=== PATIENT | male | born 1975 | race Caucasian/White ===

== ENCOUNTER 2021-10-16 19:29 | Day surgery (SDC) | payer OTHER, SELFPAY ==
[2021-10-16] VITALS (13 sets, daily range): BP systolic 108–130; BP diastolic 70–93; PULSE 61–84; RESP 12–20; TEMP 36.2–37; O2SAT 95–100; BMI 24.3
--- NOTE | 2021-10-16 20:04 | CT_ITS ---
Final Report Patient: ANGUS ANGEL Facility:?[facility], [place] Patient ID:?[id number] Site Patient ID:?[id number]. Site :?[id number] Study:?CT Abdomen/Pelvis W/ISOVUE 370 98CC-10/16/2021 8:32:05 PM Ordering Physician:Bettye Mathis Final Report: INDICATION: Right lower quadrant pain. TECHNIQUE: Volumetric helical scanning of the abdomen and pelvis was performed with 98 cc of Isovue 370 contrast material IV. Coronal and sagittal reconstructions were obtained. COMPARISON: None. FINDINGS: Inflamed appendix demonstrated in the right lower quadrant on images 112-130 of series 2. The appendix contains fluid, air and an appendicolith and measures up to 12 mm in diameter. No periappendiceal abscess, free fluid or free air is demonstrated. The bowel is otherwise unremarkable. Extent The liver may be fatty. A small cyst in the superior right lobe, segment 7, is noted. The bile ducts are within normal limits. The spleen, adrenal glands and pancreas are negative. The kidneys are unremarkable. No lymphadenopathy is evident. No free fluid is demonstrated. The prostate is within normal limits. Postop changes of left inguinal hernia repair are noted. The lung bases are essentially clear, and heart size is normal. IMPRESSION: 1. Acute appendicitis without evidence of perforation. 2. Possible fatty change of the liver. Small liver segment 7 cyst. 3. Post left inguinal hernia repair. Please note that all CT scans at this facility use dose modulation, iterative reconstruction, and/or weight-based dosing when appropriate to reduce radiation dose to as low as reasonably achievable. Dictated by Dav Man MD @ 10/16/2021 9:06:55 PM (Electronic Signature)
[2021-10-16 20:26] LABS: Basophils Percent Auto 0.2 % (0.0-3.0); Eosinophils Percent Auto 1.4 % (0.0-7.0); Hematocrit 42.7 % (37.0-53.0); Hemoglobin* 14.5 gm/dL (13.5-17.5); Immature Granulocytes Abs Auto 0.02 K/uL (0.00-0.30); Lymphocytes Percent Auto 17.2 % (20-44); Mean Corpuscular HGB Conc 34 gm/dL (32-36); Mean Corpuscular Hemoglobin 32 pg (26-34); Mean Corpuscular Volume 95 fL (80-100); Monocytes Percent Auto 6.3 % (0.0-11.0); Neutrophils Percent Auto 74.7 % (42.0-72.0); Platelet Count* 258 K/uL (140-440); RDW Coefficient of Variation % 13.1 % (11.5-15.5); Red Blood Count 4.48 m/uL (4.30-5.90); White Blood Count* 13.24 K/uL (4.50-11.00)
[2021-10-16] MEDS: 0.9 % SODIUM CHLORIDE 1000 ml 1,000 ML IV (20:30)
[2021-10-16 20:32] LABS: Chloride* 104 mmol/L (96-114); Slide Review Reflex No
[2021-10-16 20:33] LABS: Potassium* 4.1 mmol/L (3.6-5.1); Sodium* 134 mmol/L (135-149)
[2021-10-16 20:35] LABS: Est. Creatinine Clearance* 115.73; Estimated Glomerular Filt Rate 95 ml/min
[2021-10-16 20:36] LABS: Blood Urea Nitrogen* 20 mg/dL (5-24); Calcium* 9.4 mg/dL (8.4-10.6); Carbon Dioxide* 29 mmol/L (20-32); Glucose* 96 mg/dL (60-115)
[2021-10-16 20:39] LABS: C Reactive Protein* 1.8 mg/dL (0.5-1.0)
[2021-10-16 20:46] LABS: Appearance Urine Clear (Clear); Bilirubin Urine Negative (Negative); Blood Urine Negative (Negative); Color Urine Yellow (Yellow); Glucose Urine Negative (Negative); Ketones Urine Negative (Negative); Leukocyte Esterase Urine Negative (Negative); Nitrite Urine Negative (Negative); Protein Urine Negative (Negative); Specific Gravity Urine 1.015 (1.000-1.030); Urobilinogen Urine 0.2 (0.2-1.0); pH Urine 6.5 (5.0-8.5)
--- NOTE | 2021-10-16 21:22 | ED_ITS ---
HPI - Abdominal Pain General Date Seen: 10/16/21 Chief Complaint: Abdominal Pain Stated Complaint: RLQ Abdominal Pain Time Seen by Provider: 10/16/21 19:40 Source: patient and family Mode of arrival: ambulatory Limitations: no limitations History of Present Illness HPI narrative: Patient is delightful 46-year-old gentleman who presents here with his partner, for evaluation of right lower quadrant pain he was seen initially in Urgent Care and sent over here. Pain started yesterday afternoon periumbilical, now has migrated to the right lower quadrant since this morning. Eat some food earlier in the day but has not really eaten anything at all his he has not felt hungry. He did notice on the way over the bump seem to trigger more discomfort. But he is not walking bent over, he denies any fevers chills or sweats, there has been no nausea vomiting, or any change in his bowel habits he denies any dysuria frequency. They are worried about appendicitis. No family history of diver ticulitis or other issues. He did not take any Tylenol or ibuprofen, is not chronically on any medications. And has no known allergies. Has seen surgery before foreign inguinal hernia repair. MD elicited complaint: abdominal pain Pertinent past history: none Onset (ago): day(s) Pain Consistency: constant Location: RLQ Severity: moderate Quality: aching Radiation: RLQ Migration to: periumbilical and RLQ Exacerbating factors: movement Relieving factors: nothing Associated symptoms: denies other symptoms Related Data Home Medications Medication Instructions Recorded Confirmed No Known Home Medications 10/16/21 10/16/21 Allergies Allergy/AdvReac Type Severity Reaction Status Date / Time No Known Drug Allergies Allergy Verified 10/16/21 19:37 Review of Systems Status of ROS Reports: 10 or more systems reviewed and unremarkable except as noted in History and below Narrative No other complaints on review of systems is COVID vaccinated x2 with no boosters has never before had COVID. PFSH PFSH Social History Smoking Status: Current every day smoker What tobacco products do you use: cigarettes Do you use any of these nicotine containing products: None Second hand tobacco smoke exposure: No How often do you have a drink containing alcohol: 2-3 times a week How many standard drinks containing alcohol do you have on a typical day: 5 or 6 How often do you have six or more drinks on one occasion: Weekly AUDIT-C Alcohol total score: 8 Non-prescribed substance use: denies use Exam Const: Vital Signs, click to edit/add: Vital Signs - 24 hr 10/16/21 19:34 Temperature 98.6 F Pulse Rate [Left P ulse Oximeter] 84 Blood Pressure [Ri ght Upper Arm] 123/82 Pulse Oximetry 100 Documenting provider has reviewed patient's vital signs: yes Common normals: no apparent distress and oriented x3 General appearance: cooperative, comfortable and well kempt Nutritional appearance: thin Orientation/consciousness: Yes awake, Yes oriented to person and Yes oriented to place HENMT: Common normals: normocephalic, head/scalp atraumatic, hearing grossly normal bilaterally, external ears normal, EAC's normal, TM's normal bilaterally, external nose normal, nasal mucous membranes and turbinates normal, moist oral mucous membranes, oropharynx normal, dentition normal and gingiva normal Head and scalp: normal to inspection, normocephalic and atraumatic Face and sinus: normal facial exam, sinuses nontender and face symmetric Nose: external nose normal, nares normal and nasal mucous membranes and turbinates normal External ear: external ears normal External auditory canal: EAC's normal Tympanic membrane: TM's normal bilaterally Mouth: oral and palatal mucosa normal, lip normal and tongue normal Throat: posterior oropharynx normal, tonsils normal and uvula midline Eye: Common normals: EOMs intact bilaterally, conjunctivae normal, no scleral icterus and fundi normal bilaterally Conjunctiva: conjunctiva(e) normal Direct Ophthalmoscopy: fundi normal bilaterally Neck & C-Spine: Common normals: full ROM, no lymphadenopathy, supple, no meningeal signs, no JVD and no carotid bruits General: normal visual inspection Lymph: Lymphatic: no lymphadenopathy noted and no lymphedema noted Chest: Common normals: inspection of chest normal and palpation of chest normal Resp: Common normals: normal respiratory effort, no retractions, no use of accessory muscles, clear to auscultation bilaterally and percussion normal Effort & inspection: able to speak in complete sentences and symmetric chest movement Auscultation: clear to auscultation bilaterally Percussion: percussion normal Cardio: Common normals: no JVD, regular rate, regular rhythm, S1 normal heart sound, S2 normal heart sound, no gallops, no clicks, no murmurs, no rub and peripheral pulses 2+ throughout Rate: regular rate Rhythm: regular rhythm Heart sounds: S1 normal and S2 normal Peripheral pulses: pulses 2+ throughout GI: Common normals: Normal to inspection, nondistended, normoactive bowel sounds present, soft to palpation and no hepatosplenomegaly Auscultation: normoactive bowel sounds Palpation: soft, tender Details: RLQ, guarding and no hepatosplenomegaly Percussion: normal to percussion Rectal Exam - Male: deferred : Common normals: no CVA tenderness, external exam normal, testes normal, scrotum normal, no scrotal swelling and no hernias present Bladder/kidney exam: no CVA tenderness Back & Pelvis: Common normals: no CVA tenderness Extremity: Common normals: normal to inspection, full ROM, normal capillary refill, no joint enlargement, no clubbing, cyanosis or edema, no calf tenderness and no pedal edema Neuro: Common normals: oriented x3, CN's II-XII intact bilaterally, moves all extremities, no focal motor deficits, no sensory deficits noted, deep tendon reflexes 2+ bilaterally and gait normal Sensorium/orientation: awake, oriented to person and oriented to place Meningeal signs: no meningeal signs Motor exam: strength 5/5 throughout Psych: Appearance: well kempt Skin: Common normals: no rashes or lesions noted, no wounds, skin turgor normal, no jaundice, no petechiae and no mottling General skin exam: no rashes or lesions noted and turgor normal Course Consultations Consultation #1: Dr. Armstrong from General surgery Vital Signs Vital signs: Initial Vital Signs Temperature 98.6 F 10/16/21 19:34 Temperature Source Temporal Artery Scan 10/16/21 19:34 Pulse Rate 84 10/16/21 19:34 Blood Pressure 123/82 10/16/21 19:34 Blood Pressure Mean 95 10/16/21 19:34 Blood Pressure Position Supine 10/16/21 19:34 Pulse Oximetry 100 10/16/21 19:34 Oxygen Delivery Method 10/16/21 19:34 Vital Signs Temperature 98.6 F 10/16/21 19:34 Pulse Rate 84 10/16/21 19:34 Blood Pressure 123/82 10/16/21 19:34 Pulse Oximetry 100 10/16/21 19:34 Temperature 98.6 F 10/16/21 19:34 Pulse Rate 84 10/16/21 19:34 Blood Pressure 123/82 10/16/21 19:34 Pulse Oximetry 100 10/16/21 19:34 MDM - Abdominal Pain MDM Narrative Medical decision making narrative: During this evaluation of this patient I considered multiple differential diagnosis is which included the life-threatening such as appendicitis, aortic aneurysm, mesenteric ischemia, bowel perforation, volvulus, and bowel obstruction. Other differential diagnosis is include but are not limited to cholecystitis, pancreatitis, hepatitis, gastritis, GERD, diverticulitis, peptic ulcer disease, pyelonephritis/UTI, renal colic/stone, testicular torsion as well as other acute scrotal processes, inflammatory bowel disease, as well as other etiologies Patient has acute appendicitis a consult to Dr. Armstrong who is now seen the patient in the emergency room. She will be taking him to the operating room. Discussed with the patient and , the diagnosis, treatment, and the reasoning behind this. They were comfortable with this plan. Patient is ASA 1 for surgery Medical Records Attestation: I reviewed the patient's medical records. Lab Data Attestation: I reviewed the patient's lab results. Labs: Lab Results 10/16/21 10/16/21 10/16/21 Range/Units 19:47 19:48 19:48 WBC 13.24 H (4.50-11.00) K/uL RBC 4.48 (4.30-5.90) m/uL Hgb 14.5 (13.5-17.5) gm/dL Hct 42.7 (37.0-53.0) % MCV 95 (80-100) fL MCH 32 (26-34) pg MCHC 34 (32-36) gm/dL RDW Coeff of Erick 13.1 (11.5-15.5) % Plt Count 258 (140-440) K/uL Neut % (Auto) 74.7 H (42.0-72.0) % Lymph % (Auto) 17.2 L (20-44) % Swift % (Auto) 6.3 (0.0-11.0) % Eos % (Auto) 1.4 (0.0-7.0) % Baso % (Auto) 0.2 (0.0-3.0) % Neut # (Auto) 9.90 H (1.7-7.0) K/uL Lymph # (Auto) 2.30 (0.90-2.90) K/uL Swift # (Auto) 0.80 (0.00-0.90) K/UL Eos # (Auto) 0.20 (0.00-0.50) K/uL Baso # (Auto) 0.00 (0.00-0.30) K/uL Abs Immat Gran (auto) 0.02 (0.00-0.30) K/uL Sodium 134 L (135-149) mmol/L Potassium 4.1 (3.6-5.1) mmol/L Chloride 104 (96-114) mmol/L Carbon Dioxide 29 (20-32) mmol/L BUN 20 (5-24) mg/dL Creatinine 1.0 (0.5-1.5) mg/dL Estimated Creat Clear 115.73 Estimated GFR 95 ml/min Glucose 96 (60-115) mg/dL Calcium 9.4 (8.4-10.6) mg/dL C-Reactive Protein 1.8 H (0.5-1.0) mg/dL Urine Color Yellow (Yellow) Urine Appearance Clear (Clear) Urine pH 6.5 (5.0-8.5) Ur Specific [place] 1.015 (1.000-1.030) Urine Protein Negative (Negative) Urine Glucose (UA) Negative (Negative) Urine Ketones Negative (Negative) Urine Blood Negative (Negative) Urine Nitrite Negative (Negative) Urine Bilirubin Negative (Negative) Urine Urobilinogen 0.2 (0.2-1.0) Ur Leukocyte Esterase Negative (Negative) Imaging Data CT scan - abdomen: Attestation: I have reviewed the pertinent imaging results. My impression: Dilation of the appendix is seen within appendicoliths consistent with append icitis. Very mild stranding is seen around this. Radiologist's impression: Patient: ANGUS ANGEL Facility:?[facility] Patient ID:?[id number] Site Patient ID:?[id number]. Site :?[id number] Study:?CT Abdomen/Pelvis W/ISOVUE 370 98CC-10/16/2021 8:32:05 PM Ordering Physician:Bettye Mathis Final Report: INDICATION: Right lower quadrant pain. TECHNIQUE: Volumetric helical scanning of the abdomen and pelvis was performed with 98 cc of Isovue 370 contrast material IV. Coronal and sagittal reconstructions were obtained. COMPARISON: None. FINDINGS: Inflamed appendix demonstrated in the right lower quadrant on images 112-130 of series 2. The appendix contains fluid, air and an appendicolith and measures up to 12 mm in diameter. No periappendiceal abscess, free fluid or free air is demonstrated. The bowel is otherwise unremarkable. Extent The liver may be fatty. A small cyst in the superior right lobe, segment 7, is noted. The bile ducts are within normal limits. The spleen, adrenal glands and pancreas are negative. The kidneys are unremarkable. No lymphadenopathy is evident. No free fluid is demonstrated. The prostate is within normal limits. Po stop changes of left inguinal hernia repair are noted. The lung bases are essentially clear, and heart size is normal. IMPRESSION: 1. Acute appendicitis without evidence of perforation. 2. Possible fatty change of the liver. Small liver segment 7 cyst. 3. Post left inguinal hernia repair. Please note that all CT scans at this facility use dose modulation, iterative reconstruction, and/or weight-based dosing when appropriate to reduce radiation dose to as low as reasonably achievable. Dictated by Dav Man MD @ 10/16/2021 9:06:55 PM (Electronic Signature) Discharge Plan Discharge Clinical Impression: Acute appendicitis Patient Disposition: Admitted As Inpatient Condition: Stable Prescriptions: No Action No Known Home Medications 0RF Follow Up/Referrals: Provider,Not a Local [Primary Care Provider] -
--- NOTE | 2021-10-16 21:36 | PM.GSHP ---
History of Present Illness History of Present Illness Date Seen: 10/16/21 Chief complaint: RLQ Abdominal Pain Narrative: Eloy Dobbins is a 46 year old male Who presented to emergency room with right lower quadrant abdominal pain. Patient states that his pain started yesterday and was located on the left side. Patient thought that he was constipated. He went to work today however did not feel well and felt lightheaded. He came home and rested. When he woke up from a nap, he continued to have abdominal pain but it was located on the right side. Patient denies any nausea or vomiting. In the emergency room he was found to have an elevated WBC of 13.2. An abdominal CT was obtained that showed a dilated wall enhancing appendix with appendicoliths with no periappendiceal abscess. Review of Systems Narrative: General: no fevers HENT: no problems swallowing CV: no shortness of breath Resp: no cough GI: See above : no dysuria, no increased urinary frequency, no hematuria Skin: no new rashes Musculoskeletal: + back pain. patient has back pain on and off. Neuro: no muscle weakness PFSH PFSH Surgical History (Updated 10/16/21 @ 21:39 by Wilber Barlow MD) History of umbilical hernia repair S/P inguinal hernia repair using synthetic patch Social History (Updated 10/16/21 @ 21:39 by iWlber Barlow MD) Narrative: Patient works in construction. Smoking Status: Current every day smoker What tobacco products do you use: cigarettes Do you use any of these nicotine containing products: None Second hand tobacco smoke exposure: No How often do you have a drink containing alcohol: 2-3 times a week How many standard drinks containing alcohol do you have on a typical day: 5 or 6 How often do you have six or more drinks on one occasion: Weekly AUDIT-C Alcohol total score: 8 Non-prescribed substance use: denies use Meds Home Medications and Allergies Home Medications Medication Instructions Recorded Confirmed Type No Known Home Medications 10/16/21 10/16/21 History Allergies Allergy/AdvReac Type Severity Reaction Status Date / Time No Known Drug Allergies Allergy Verified 10/16/21 19:37 Exam Narrative: Exam Narrative: General appearance: Alert, cooperative, and in no distress Pulmonary: Chest symmetric, lungs clear bilaterally Cardiovascular Heart: Regular rate and rhythm, S1, S2, no murmurs/rubs/gallops Gastrointestinal Abdominal: soft, not distended, Tender to palpation in the right lower quadrant and suprapubically but no tenderness anywhere else. Skin: Normal skin color, texture, and turgor. No rashes or lesions. Psychiatric: Alert, cooperative, normal affect. Const: Vital Signs, click to edit/add: Vital Signs - 24 hr 10/16/21 19:34 Temperature 98.6 F Pulse Rate [Left P ulse Oximeter] 84 Blood Pressure [Ri ght Upper Arm] 123/82 Pulse Oximetry [address] scan report/results: image reviewed Assessment and Plan Assessment and plan (1) Acute appendicitis: Status: Acute Plan 46-year-old male presents with acute appendicitis. I discussed with the patient and his his laboratory and imaging findings. Patient has minimally elevated WBC and findings of acute appendicitis on CT scan. He has tenderness to palpation in the right lower quadrant and suprapubically on clinical exam. I recommended to proceed with laparoscopic appendectomy. The procedure was discussed in detail. The risks associated the procedure including infection, bleeding, injury to intra-abdominal organs, and exposure to COVID-19 were all discussed with the patient, and he agreed to proceed.
[2021-10-16 21:47] LABS: SARS PCR* Negative SARS-CoV-2 (Negative)
[2021-10-16] MEDS: LACTATED RINGERS 1000 ML 1,000 ML 100 ML IV ×2 (21:54→23:02)
[2021-10-16] MEDS: PIPERACILLIN/TAZOBACTAM 3.375 GM in 0.9 % SODIUM CHLORIDE Mini-bag 100 ML IVPB (22:00)
[2021-10-16] MEDS: BUPIVACAINE 0.25% 30 ML INJECTION (22:35)
--- NOTE | 2021-10-16 22:53 | PM.GSPRC ---
Operative Note Date of procedure: 10/16/21 Type of Procedure: 1. Laparoscopic appendectomy. Procedure Description: After discussing the risks and benefits of the procedure, the patient signed informed consent.? The operative site was marked and the patient was brought to the operating room and placed on the operating table in supine position.? Care was taken to pad the patient's pressure points.?? The patient was then intubated by anesthesia.?? The operative site was then prepped and draped in the usual sterile fashion.? A time-out was then performed. A 5-mm laparoscopy port was placed in the left upper quadrant guided by a 5-mm laparoscope placed into a translucent trochar. Passage through the layers of the abdominal wall was visualized with the laparoscope. A pneumoperitoneum was established. A 30-degree 5-mm laparoscope was advanced into the abdomen. The abdomen was briefly surveyed, and there was no evidence of diffuse peritonitis. A 12-mm port and a 5-mm port were placed suprapubically, respectively, under direct visualization by laparoscope. Left upper quadrant entrance port was then examined intraabdominally by placing the camera through the left lower quadrant port and no intraabdominal injury was seen. The patient was placed in Trendelenburg position, allowing the abdominal contents to shift cephalad. the appendix was identified and appeared to be dilated. The base of the appendix was inflamed with minimal inflammation of adjacent cecum. The appendix was grasped and dissected from the peritoneum using Harmonic scalpel. The appendiceal mesentery was skeletonized with Harmonic scalpel. The appendiceal artery was identified and clipped with 2 5 mm clips on the patient's side and a single clip on the specimen side and divided with scissors. No bleeding was seen from appendiceal artery. A vascular load Endo-PATRICIO stapler was advanced through the 12-mm port into the abdomen and appendix was stapled off at its base. The appendix was then placed in an endoscopic retrieval bag and extracted from the abdomen through the 12-mm port. The abdomen was surveyed for hemostasis. And no bleeding was seen. Omentum was placed over the right lower quadrant. The 12-mm port was withdrawn and the fascial defect was closed with 0-0 Vicryl stitch using Patel Rebecca needle under direct visualization. The 5-mm port was removed under direct visualization. The left upper quadrant port was used to evacuate the pneumoperitoneum and then withdrawn. The skin incisions were closed with 4-0 monocryl. Steri-Strips were applied over the incisions. All counts were correct at the end of the case. The patient tolerated this procedure well and was transferred to PACU in stable condition. Findings: Dilated appendix with no evidence of perforation. Anesthesia: GETA Surgeon: Wilber Barlow MD Estimated blood loss (mL): 5 Condition: stable Disposition: PACU
--- NOTE | 2021-10-16 23:04 | W.ANESCHARGE ---
Anesthesia Charges Start Date/Time Anesthesia Start Date: 10/16/21 Anesthesia Start Time: 21:54 Stop Date/Time Anesthesia Stop Date: 10/16/21 Anesthesia Stop Time: 22:58 Summary Emergency: Yes
[2021-10-17] VITALS (8 sets, daily range): BP systolic 117–129; BP diastolic 69–79; PULSE 66–91; RESP 18; TEMP 36.8–37.1; O2SAT 93–96
[2021-10-17] MEDS: LACTATED RINGERS 1000 ML 1,000 ML 100 ML IV (01:00)
--- NOTE | 2021-10-17 06:30 | PC.NURSE ---
pt to floor at 2330 from PACU. Pt pleasant and cooperative. indep in room. No c/o pain. No c/o nausea. VS WNL. 3 lap sites, healing appropriately w/o drainage. ?
--- NOTE | 2021-10-17 08:08 | PM.DS1 ---
DS: Providers Provider Date Seen: 10/17/21 Primary care physician: Not a Local Provider Attending Physician on discharge: Wilber Barlow MD DS: Diagnosis Discharge Diagnosis (1) Acute appendicitis: Status: Acute DS: Summary Hospital Course Hospital Course: Patient is an otherwise healthy 46-year-old male who presented to the emergency department with findings consistent for acute appendicitis. He underwent a laparoscopic appendectomy, with no evidence of perforation. Postoperatively he did well. On the day of discharge he was tolerating a regular diet, pain was well controlled with oral medications and he was ambulating independently. Status at Discharge Functional status at discharge: independent ambulation Overall status at discharge: patient is back to baseline Time Spent with Patient Time attestation: Total time spent providing and/or coordinating discharge services: Exam Narrative: Exam Narrative: General: Alert and oriented, no acute distress. Lying comfortably in bed. Abdomen: Soft, appropriately tender at incision sites with Steri-Strips in place clean/dry/intact. No concern for infection. Respiratory: Equal breath rise, maintained on room air CV: Regular rhythm and rate, well perfused Const: Vital Signs, click to edit/add: Vital Signs - 24 hr 10/16/21 19:34 10/16/21 20:00 10/16/21 20:30 Temperature 98.6 F Pulse Rate Pulse Rate [Left P ulse Oximeter] 84 80 75 Respiratory Rate Blood Pressure Blood Pressure [Ri ght Arm] Blood Pressure [Ri ght Upper Arm] 123/82 125/86 122/77 Pulse Oximetry 100 99 99 10/16/21 21:00 10/16/21 21:30 10/16/21 22:54 Temperature 97.2 F L Pulse Rate 63 Pulse Rate [Left P ulse Oximeter] 84 74 Respiratory Rate 12 Blood Pressure 126/93 H Blood Pressure [Ri ght Arm] Blood Pressure [Ri ght Upper Arm] 130/86 129/88 Pulse Oximetry 98 98 98 10/16/21 23:00 10/16/21 23:05 10/16/21 23:10 Temperature Pulse Rate 61 63 64 Pulse Rate [Left P ulse Oximeter] Respiratory Rate 12 16 18 Blood Pressure 108/70 116/75 120/75 Blood Pressure [Ri ght Arm] Blood Pressure [Ri ght Upper Arm] Pulse Oximetry 96 96 96 10/16/21 23:15 10/16/21 23:20 07/21/22 23:30 Temperature 97.4 F L 97.3 F L Pulse Rate 66 64 66 Pulse Rate [Left P ulse Oximeter] Respiratory Rate 20 20 18 Blood Pressure 119/77 122/74 Blood Pressure [Ri ght Arm] 118/75 Blood Pressure [Ri ght Upper Arm] Pulse Oximetry 96 96 10/16/21 23:45 10/17/21 00:00 10/17/21 00:15 Temperature 98.4 F Pulse Rate Pulse Rate [Left P ulse Oximeter] Respiratory Rate 18 18 18 Blood Pressure Blood Pressure [Ri ght Arm] 117/75 119/72 123/72 Blood Pressure [Ri ght Upper Arm] Pulse Oximetry 95 95 96 10/17/21 00:30 10/17/21 01:00 10/17/21 02:00 Temperature Pulse Rate Pulse Rate [Left P ulse Oximeter] 77 78 66 Respiratory Rate 18 18 18 Blood Pressure Blood Pressure [Ri ght Arm] 125/75 121/73 129/79 Blood Pressure [Ri ght Upper Arm] Pulse Oximetry 96 96 96 10/17/21 03:00 10/17/21 04:00 Temperature 98.3 F Pulse Rate Pulse Rate [Left P ulse Oximeter] 67 67 Respiratory Rate 18 18 Blood Pressure Blood Pressure [Ri ght Arm] 117/74 117/75 Blood Pressure [Ri ght Upper Arm] Pulse Oximetry 96 96 DS: Data Data Completed and Pending Labs on day of discharge: Labs from last 24 hours 10/16/21 10/16/21 10/16/21 20:40 19:48 19:48 WBC 13.24 H RBC 4.48 Hgb 14.5 Hct 42.7 MCV 95 MCH 32 MCHC 34 RDW Coeff of Erick 13.1 Plt Count 258 Neut % (Auto) 74.7 H Lymph % (Auto) 17.2 L [place] % (Auto) 6.3 Eos % (Auto) 1.4 Baso % (Auto) 0.2 Neut # (Auto) 9.90 H Lymph # (Auto) 2.30 [place] # (Auto) 0.80 Eos # (Auto) 0.20 Baso # (Auto) 0.00 Abs Immat Gran (auto) 0.02 Sodium 134 L Potassium 4.1 Chloride 104 Carbon Dioxide 29 BUN 20 Creatinine 1.0 Estimated Creat Clear 115.73 Estimated GFR 95 Glucose 96 Calcium 9.4 C-Reactive Protein 1.8 H Urine Color Urine Appearance Urine pH Ur Specific [place] Urine Protein Urine Glucose (UA) Urine Ketones Urine Blood Urine Nitrite Urine Bilirubin Urine Urobilinogen Ur Leukocyte Esterase SARS-CoV-2 (PCR) Negative SARS-CoV-2 Surg PTH (Off-Site) 10/16/21 10/16/21 19:47 10:30 WBC RBC Hgb Hct MCV MCH MCHC RDW Coeff of Erick Plt Count Neut % (Auto) Lymph % (Auto) [place] % (Auto) Eos % (Auto) Baso % (Auto) Neut # (Auto) Lymph # (Auto) [place] # (Auto) Eos # (Auto) Baso # (Auto) Abs Immat Gran (auto) Sodium Potassium Chloride Carbon Dioxide BUN Creatinine Estimated Creat Clear Estimated GFR Glucose Calcium C-Reactive Protein Urine Color Yellow Urine Appearance Clear Urine pH 6.5 Ur Specific [place] 1.015 Urine Protein Negative Urine Glucose (UA) Negative Urine Ketones Negative Urine Blood Negative Urine Nitrite Negative Urine Bilirubin Negative Urine Urobilinogen 0.2 Ur Leukocyte Esterase Negative SARS-CoV-2 (PCR) Surg PTH (Off-Site) Pending Discharge Plan Discharge Disposition: Home, Self-Care Discharging Surgeon: Wilber Barlow Follow-Up Appointment: [address] [facility] clinic Prescriptions: New hydrocodone-acetaminophen 5-325 mg tablet 1 tab PO Q6H PRN (Reason: pain) Qty: 25 0RF Activity Level: No strenuous activity Activity Detail: No strenuous activity or lifting more than 15-20 lbs for 4-6 weeks. Discharge Diet: Regular Patient Instructions: General Anesthesia (DC), Laparoscopic Appendectomy (DC), Post-Operative Instructions: Appendectomy Additional Instructions: Okay to discharge the patient when he meets discharge criteria. Patient should be able to tolerate liquids, urinated, ambulated, pain is controlled. Forms: Work/Release Restrictions Follow-up: Wilber Barlow MD [Staff Physician] - Discharge Orders: Discharge Order (Routine); Ordered 10/16/21 Ordered By: Wilber Barlow
--- NOTE | 2021-10-17 10:20 | PC.NURSE ---
shift note: pt up indept in fields and to bathroom. pt rating abd pain 05/08. Abd lap incision sites c/d/i. Reviewed dc instructions with pt and his spouse. copies sent with pt at dc. dc'd iv intact Lt AC. Belongings reviewed and sent with pt at [place].
== END 2021-10-17 09:15 | disposition home or self-care (01) ==
LOC: ED 21:36 → SS 21:59 → MEDSURG 23:29
PROVIDERS: Emergency Provider Family Medicine; Visit Provider Surgery
PROC: 0DTJ4ZZ Resection of Appendix, Percutaneous Endoscopic Approach (ICD-10-PCS; CPT 44970; principal; 2021-10-16 21:45)
DX: K35.80 Unspecified acute appendicitis (principal)
CPT/HCPCS: 44970; 00840; 36415; 74177; 80048; 81001; 81003; 85025; 86140; 87635; 88304; 99140; 99284; 99285; J0330; J1100; J1885; J2250; J2405; J2543; J2704; J2710; J3010; J3490; J7030; J7120; Q9967